=== PATIENT | female | born 1950 | race Two or more races ===

== ENCOUNTER 2017-10-09 08:14 | Inpatient (IN) | payer MEDICARE, OTHER ==
[~2017-10-09] VITALS: Ht 154.9 cm; Wt 61.0 kg
[2017-10-09] MEDS ORDERED: ONDANSETRON 4 MG/2 ML VIAL IV ONE (08:30)
[2017-10-09] MEDS ORDERED: HYDROMORPHONE 1 MG/1 ML DISP.SYRIN IV ONE (08:30)
[2017-10-09] MEDS ORDERED: ESCI10TA PO (08:33)
[2017-10-09] MEDS ORDERED: ASPI-605 PO (08:33)
[2017-10-09] MEDS ORDERED: ATOR10TA PO (08:33)
[2017-10-09] MEDS ORDERED: METF500T7 PO (08:33)
[2017-10-09] MEDS ORDERED: HYDROMORPHONE 2 MG/1 ML DISP.SYRIN ONE (08:41)
[2017-10-09] MEDS ORDERED: ONDANSETRON 4 MG/2 ML VIAL ONE (08:41)
[2017-10-09] MEDS ORDERED: PREG150C PO (08:41)
[2017-10-09 08:53] LABS: BASOPHILS % (AUTO) 0.4 % (0.0-2.0); EOSINOPHILS # (AUTO) 0.1 K/uL (0.0-0.7); EOSINOPHILS % (AUTO) 0.9 % (0.0-7.0); HEMATOCRIT 33.2 % (31.2-41.9); HEMOGLOBIN 11.5 g/dL (10.9-14.3); LYMPHOCYTES # (AUTO) 1.7 K/uL (20.0-40.0); LYMPHOCYTES % (AUTO) 23.2 % (20.5-51.5); MEAN CORPUSCULAR HEMOGLOBIN 31.4 uug (24.7-32.8); MEAN CORPUSCULAR HGB CONC 35 g/dL (32.3-35.6); MEAN CORPUSCULAR VOLUME 90.4 fL (75.5-95.3); MONOCYTES # (AUTO) 0.3 K/uL (2.0-10.0); MONOCYTES % (AUTO) 3.6 % (0.0-11.0); NEUTROPHILS # (AUTO) 5.3 K/uL (1.8-8.9); NEUTROPHILS % (AUTO) 71.9 % (38.5-71.5); PLATELET COUNT (AUTO) 198 K/uL (179-408); RED BLOOD CELL COUNT(AUTO) 3.67 MIL/uL (3.63-4.92); WHITE BLOOD COUNT (AUTO) 7.3 K/uL (3.8-11.8)
[2017-10-09 09:00] LABS: CREATININE 0.9 mg/dL (0.6-1.3); POTASSIUM 3.9 mmol/L (3.5-5.1)
[2017-10-09 09:05] LABS: BILIRUBIN,DIRECT 0.1 mg/dL (0.0-0.2); BILIRUBIN,TOTAL 0.5 mg/dL (0.2-1.0); TOTAL PROTEIN, SERUM 7.6 g/dL (6.4-8.2)
--- NOTE | 2017-10-09 09:13 | NUR ---
PATIENT WAS SEEN BY MD FOR C/O ABDOMINAL PAIN, NAUSEA AND VOMITING. CT AND XRAYS DONE. LABS DRAWN. ULTRASOUND IN PROCESS. PAIN AND NAUSEA MEDS GIVEN. PATIENT STATES PAIN AND NAUSEA HAVE DIMINISHED.
--- NOTE | 2017-10-09 09:34 | NUR ---
DR LAZO SPOKE TO DR MANCIA ABOUT THIS PATIENT. PATIENT AND FAMILY AWARE OF PENDING ADMISSION TO HOSPITAL.
--- NOTE | 2017-10-09 09:49 | NUR ---
REPORT GIVEN TO DENITA CASTILLO.
[2017-10-09] MEDS ORDERED: IV NS 1000 ML 1,000 ML IV PRN (10:14)
[2017-10-09] MEDS ORDERED: MORPHINE SULFATE 2 MG/1 ML DISP.SYRIN IV PRN (10:15)
[2017-10-09] MEDS ORDERED: ACETAMINOPHEN 325 MG TABLET PO PRN (10:15)
[2017-10-09] MEDS ORDERED: ONDANSETRON 4 MG/2 ML VIAL IV PRN (10:15)
[2017-10-09 10:50] VITALS: BP 135/54
--- NOTE | 2017-10-09 11:00 | NUR ---
NEW PATIENT FROM ER TO ROOM 218 AWAKE ALERT ORTX3 COOPERATE WELL VS TAKEN STABLE RESTING IN BED WITH CALL PRETTY IN REACH FAMILY AT BEDSIDE
[2017-10-09] MEDS ORDERED: MORPHINE SULFATE 4 MG/1 ML DISP.SYRIN IV PRN (11:15)
--- NOTE | 2017-10-09 11:30 | NUR ---
Selin MARTINES SEE PATIENT AND NEW ORDER IN CHART
--- NOTE | 2017-10-09 11:46 | NUR ---
C/O OF ABD PAIN MED MORPHINE PRN GIVEN ORDER BUT REFUSED TO HAVE IVF INFUSION STATE WANT TO GO TO SEE HER PRIMARY DR AT [facility] TODAY
--- NOTE | 2017-10-09 11:50 | NUR ---
Selin MARTINES WAS INFORM OF PATIENT DOES NOT WANT TO STAY ,HE WENT BACK TO EXPLAINED TO PATIENT AND FAMILY BUT THEY STILL WANT TO GO
--- NOTE | 2017-10-09 12:20 | NUR ---
PAIN RELIEF STATE WANT TO GO NOW AMA FORM SIGNS AND EXPLAINED THE RISKS OF LEAVING HOSPITAL AT THIS TIME ,VERBALIZES UNDERSTAND HL WAS DISCONTINUE PRIOR D/C TODAY
--- NOTE | 2017-10-09 12:35 | NUR ---
PATIENT LEAVING HOSPITAL WITH HER BELONGING ACCOMPANIES WITH FAMILY CONDITION STABLE
[2017-10-10] MEDS ORDERED: PANTOPRAZOLE SODIUM 40 MG VIAL IV SCH (09:00)
== END 2017-10-09 12:35 | disposition left against medical advice (07) | DRG 395 ==
LOC: ER 08:14 → TELE 10:30 → MED 10:45
PROVIDERS: ADMIT Nurse Practitioner Acute Care; ATTEND Nurse Practitioner Acute Care
DX: K43.6 Other and unspecified ventral hernia with obstruction, without gangrene (principal); E11.65 Type 2 diabetes mellitus with hyperglycemia; Z79.84 Long term (current) use of oral hypoglycemic drugs; Z90.710 Acquired absence of both cervix and uterus; Z79.82 Long term (current) use of aspirin; Z79.899 Other long term (current) drug therapy; F32.9 Major depressive disorder, single episode, unspecified; E78.5 Hyperlipidemia, unspecified; R79.89 Other specified abnormal findings of blood chemistry
CPT/HCPCS: 36415; 70030-TC; 71045; 76700; 83690; 85025; 85730; 93005; A4663; J1170; J2270; J2405; J7030